=== PATIENT | female | born 1985 | race Caucasian/White ===

== ENCOUNTER 2020-01-02 13:16 | Emergency (ER) | payer OTHER ==
[~2020-01-02] VITALS: Ht 160 cm; Wt 68.0 kg
== END 2020-01-02 20:03 | disposition home or self-care (01) ==
LOC: ER 13:16
DX: O26.851 Spotting complicating pregnancy, first trimester (principal); O36.80X1 Pregnancy with inconclusive fetal viability, fetus 1; N83.291 Other ovarian cyst, right side; D25.1 Intramural leiomyoma of uterus; Z3A.01 Less than 8 weeks gestation of pregnancy

== ENCOUNTER → 2020-12-26 | Day surgery (SDC) | payer OTHER ==
[~2020-12-26] VITALS: Ht 160 cm; Wt 72.6 kg
[~2020-12-26] MED LIST: CODE1TAB37 PO; NAPROXEN500 M1 PO
--- NOTE | 2020-12-26 09:24 | NUR ---
PTE REFIERE 2 MESES DE EMBARAZO REFIERE [place] DES[place] HACE 4 [place]WAY SE LIZ S/V YS EUBIAC LESLEY TYLER DE OBSERVACION
--- NOTE | 2020-12-26 11:23 | NUR ---
SE ORIENTA PTE SOBRE EL TRATAMIENTO ORDENAO POR EL DR ANDERSEN PTE ALERTA Y CONCIENTE POR 3 SE REALIZAN MUESTRAS DE LABORATORIO PTE SE MANTIENE EN OBSERVACION
== END | disposition home or self-care (01) ==
LOC: ER 09:12 → CIR.AMB 09:16 → ER 09:16 → SEC-K 12:18 → ER 12:18 → EDSTATUS 13:00 → SEC-K 18:30
PROVIDERS: ATTEND Obstetrics & Gynecology
DX: O00.101 Right tubal pregnancy without intrauterine pregnancy (principal); K66.1 Hemoperitoneum; Z20.822 Contact with and (suspected) exposure to COVID-19